=== PATIENT | female | born 1970 | race Hispanic/Latino ===

== ENCOUNTER 2020-06-29 10:40 | Outpatient (CLI) | payer BC, SELFPAY ==
--- NOTE | ~2020-06-29 | XR_ITS ---
EXAMINATION: XR knee RT min 4V, XR tibia fibula RT 2V DATE: 06/29/2020 11:01 INDICATION: Anterolateral right knee and lower leg pain. TECHNIQUE: 1. Weight bearing anteroposterior and Lujan, sunrise, and flexed lateral views of the right knee were obtained 2. AP and lateral views of the right lower leg were obtained. COMPARISON: None. FINDINGS: Alignment is normal. No fracture. Joint space of the right knee, ankle and visualized mid and hindfo ot are normal. No right knee or ankle joint effusion. Small Achilles and plantar calcaneal spurs. Sof t tissues are unremarkable. IMPRESSION: 1. Small Achilles and plantar calcaneal spurs. Otherwise unremarkable radiographs of the right knee a nd lower leg. Reviewed, dictated and finalized at location B. IMPRESSION: 1. Small Achilles and plantar calcaneal spurs. Otherwise unremarkable radiograp hs of the right knee and lower leg.
== END 2020-06-29 10:41 | disposition home or self-care (01) ==
LOC: ANHIMG 10:43
PROVIDERS: PCP Family Medicine; Visit Provider Family Medicine
DX: M79.661 Pain in right lower leg (principal); M77.31 Calcaneal spur, right foot
CPT/HCPCS: 73564; 73590

== ENCOUNTER 2020-09-13 15:35 | Outpatient (CLI) | payer BC, OTHER, SELFPAY ==
--- NOTE | ~2020-09-13 | MM_ITS ---
EXAMINATION: MM screening nimesh BI w [place] HISTORY: Screening mammogram TECHNIQUE: Craniocaudal and mediolateral oblique 3-D tomosynthesis images were obtained and synthetic 2-D images were generated. CAD analysis was submitted and interpreted. COMPARISON: 03/11/2013, 11/04/2011 bilateral digital screening mammogram examinations BREAST PARENCHYMAL COMPOSITION: The breasts are heterogeneously dense, which may obscure small masses . FINDINGS: There is no evidence of suspicious mass, calcification, or architectural distortion to sugg est malignancy in either breast. There has been no suspicious interval change. IMPRESSION: 1. No mammographic evidence of malignancy. 2. Recommend routine screening mammography in one year. BI-RADS Category 1: Negative Reviewed, dictated and finalized at location A.
== END 2020-09-13 15:36 | disposition home or self-care (01) ==
LOC: ANHIMG 15:47
PROVIDERS: PCP Family Medicine; Visit Provider Family Medicine
DX: Z12.31 Encounter for screening mammogram for malignant neoplasm of breast (principal)
CPT/HCPCS: 77063; 77067